=== PATIENT | male | born 1955 | race Caucasian/White ===

== ENCOUNTER → 2018-08-27 | Outpatient (REF) | payer OTHER ==
[~2018-08-27] MED LIST: CHON250C2 PO; KET10 PO; LEV125 PO; LEV25 PO; LEVO25TA61 PO; NYST15CR32 TP; PER PO; SIMV-44 PO; SIMV-54 PO; TADA10TA14 PO; TADA5TAB7 PO
== END ==
LOC: ZZSENDIN 12:00
PROVIDERS: ATTEND Urology
DX: R97.20 Elevated prostate specific antigen [PSA] (principal)
CPT/HCPCS: 88305; 88344